=== PATIENT | female | born 1970 | race Caucasian/White ===

== ENCOUNTER → 2017-01-02 | Outpatient (CLI) | payer OTHER ==
[~2017-01-02] MED LIST: ATOR-54 PO; CALC500C3 PO; CITA40TA4 PO; DLN/100 PO; FOLI1TAB7 PO; GABA-113 PO; LEVO100T PO; NAPR1TAB9 PO
== END | disposition home or self-care (01) ==
LOC: C.LABBFT 10:42
PROVIDERS: ATTEND Internal Medicine
DX: E55.9 Vitamin D deficiency, unspecified (principal)

== ENCOUNTER → 2017-01-31 | Outpatient (CLI) | payer OTHER ==
--- NOTE | 2017-02-04 13:45 | MAMMOGRAPHY REPORT ---
BILATERAL DIGITAL SCREENING MAMMOGRAM WITH CAD: 01/31/2017 CLINICAL HISTORY: Routine screening. Baseline exam. TECHNIQUE: Current study was also evaluated with a Computer Aided Detection (CAD) system. Bilatera l CC and MLO views were obtained. The images are somewhat suboptimal due to difficulties with the p atient cooperating for positioning. COMPARISON: No prior exams were available for comparison. BREAST COMPOSITION: There are scattered areas of fibroglandular density in both breasts. FINDINGS: There is a possible oval 8 mm mass and associated calcifications in the left lateral sugar st at approximately 3 to 4:00, for which spot compression tomosynthesis views, spot magnification vi ews, and possible breast ultrasound are recommended for further evaluation. The remainder of both breasts are negative, without suspicious masses, calcifications, or areas of a rchitectural distortion noted. IMPRESSION: ACR BI-RADS CATEGORY 0: INCOMPLETE EVALUATION: NEED ADDITIONAL IMAGING EVALUATION Possible left breast mass with associated calcifications, for which additional imaging evaluation is recommended. The patient will be called to schedule an appointment. Approximately 10% of breast cancers are not detected with mammography. A negative mammographic repor t should not delay biopsy if a clinically suggestive mass is present. Lizeth Odell M.D. ah/:01/31/2017 16:32:53 It Lead: Jacqueline GARCIA(Izabela)(M), [facility] letter sent: Addl Imaging 0 BI-RADS Code: ACR BI-RADS Category 0: Incomplete Evaluation: Need Additional Imaging Evaluation
== END | disposition home or self-care (01) ==
LOC: C.MAMM 12:32
PROVIDERS: ATTEND Obstetrics & Gynecology
DX: Z12.31 Encounter for screening mammogram for malignant neoplasm of breast (principal); N63 Unspecified lump in breast; R92.1 Mammographic calcification found on diagnostic imaging of breast

== ENCOUNTER → 2017-02-21 | Outpatient (CLI) | payer OTHER ==
--- NOTE | 2017-02-21 12:48 | MAMMOGRAPHY REPORT ---
UNILATERAL LEFT DIGITAL DIAGNOSTIC MAMMOGRAM TOMOSYNTHESIS AND TARGETED LEFT ULTRASOUND: 02/21/2017 CLINICAL HISTORY: Callback from screening mammogram for left breast mass and associated calcificatio ns. TECHNIQUE: Breast tomosynthesis in addition to standard 2D mammography was performed. Spot christo hammad left CC and MLO 2-D and tomosynthesis images and spot magnification left CC and ML views were o btained. COMPARISON: Comparison is made to exam dated: 01/31/2017 mammogram - [facility]. BREAST COMPOSITION: There are scattered areas of fibroglandular density in the left breast. FINDINGS: The images are somewhat suboptimal due to difficulties with the patient cooperating for p ositioning. Spot compression views demonstrate an oval lobulated circumscribed 8 mm mass seen withi n the left breast at approximately 3 to 4:00. 2 calcifications are seen in association with the mas s, which are punctate on the cc view, with one of the calcifications layering on the MLO view sugges tive of calcifications layering within a cyst. Targeted ultrasound was performed of the area of the left breast mass. In the left breast at 3 to 4 :00 periareolar region, there is a subtle hypoechoic mass which measures 5 x 2 x 2 mm. A punctate e chogenic focus is seen within the mass, consistent with one of the calcifications seen mammographica lly. The mass is probably benign and likely represents a cyst although this does not meet all of th e criteria for a cyst on ultrasound. The options of biopsy versus short interval follow-up were dis cussed with the patient and her helper, and at this time we will opt for six-month follow-up. IMPRESSION: ACR-BI-RADS CATEGORY 3: PROBABLY BENIGN, TARGETED ULTRASOUND ACR-BI-RADS CATEGORY 3: SD OBABLY BENIGN Hypoechoic 5 mm mass with associated internal layering calcifications in the left 4:00 breast. The mass is probably benign and likely represents a cyst. Recommend follow-up diagnostic tomosynthesis mammograms and possible ultrasound of the left breast in 6 months to reevaluate. The patient and her helper have been verbally notified of the results. Approximately 10% of breast cancers are not detected with mammography. A negative mammographic repor t should not delay biopsy if a clinically suggestive mass is present. Lizeth Odell M.D. ah/:02/21/2017 09:06:52 Senior Administrative Assistant: Prachi Fitzpatrick RT(R)(M), [facility] letter sent: Follow Up Recommended 3 BI-RADS Code: ACR-BI-RADS Category 3: Probably Benign Ultrasound BI-RADS: ACR-BI-RADS Category 3: P robably Benign
== END | disposition home or self-care (01) ==
LOC: C.MAMM 08:33
PROVIDERS: ATTEND Obstetrics & Gynecology
DX: N63 Unspecified lump in breast (principal); R92.1 Mammographic calcification found on diagnostic imaging of breast

== ENCOUNTER → 2017-08-22 | Outpatient (CLI) | payer OTHER ==
--- NOTE | 2017-08-22 12:36 | MAMMOGRAPHY REPORT ---
UNILATERAL LEFT DIGITAL DIAGNOSTIC MAMMOGRAM TOMOSYNTHESIS WITH CAD AND TARGETED LEFT ULTRASOUND: 08/03 CLINICAL HISTORY: 6 Month Follow-up Left. TECHNIQUE: Breast tomosynthesis in addition to standard 2D mammography was performed. Current study was also evaluated with a Computer Aided Detection (CAD) system. Left CC and MLO 2-D and tomosynthes is images and spot magnification left CC and ML views were obtained. COMPARISON: Comparison is made to exams dated: 02/21/2017 mammogram, 02/21/2017 ultrasound, and 02/01/20 17 mammogram - [facility]. BREAST COMPOSITION: There are scattered areas of fibroglandular density in the left breast. FINDINGS: The previously seen circumscribed mass within the left breast at approximately 3 to 4:00 a ppears stable to less prominent mammographically compared to the prior exam. 2 calcifications are se en within the mass, which are punctate on the cc view and one of the calcifications layers on the lat eral view suggestive of calcifications layering within a cyst. The calcifications are also stable co mpared to the January 2017 exam. The remainder of the left breast is stable mammographically compared to prior exams, without suspicious masses, calcifications, or areas of architectural distortion noted . Targeted ultrasound was performed of the area of the previously seen mass. In the left breast at 4:0 0 periareolar region, there is an oval anechoic circumscribed mass which measures 4 x 2 x 3 mm. This is not significantly changed compared to the January exam where the mass measured 5 x 2 x 2 mm. This corresponds with the mammographic mass and is consistent with a benign cyst with internal calcificati ons. IMPRESSION: ACR BI-RADS CATEGORY 2: BENIGN, TARGETED ULTRASOUND ACR BI-RADS CATEGORY 2: BENIGN Anechoic 4 mm mass in the left breast at 4:00 with associated internal layering calcifications is sta ble compared to the January 2017 exam and is consistent with a benign cyst. There is no mammographic o r targeted sonographic evidence of malignancy. Return to annual mammogram screening schedule is recom mended, due January 2018. The patient has been verbally notified of the results. Approximately 10% of breast cancers are not detected with mammography. A negative mammographic report should not delay biopsy if a clinically suggestive mass is present. Lizeth Odell M.D. ah/:08/22/2017 10:06:30 Hypnotherapist: Jacqueline GARCIA(R)(M), [facility] letter sent: Normal /2 BI-RADS Code: ACR BI-RADS Category 2: Benign Ultrasound BI-RADS: ACR BI-RADS Category 2: Benign
== END | disposition home or self-care (01) ==
LOC: C.MAMM 09:19
PROVIDERS: ATTEND Obstetrics & Gynecology
DX: R92.2 Inconclusive mammogram (principal); N63 Unspecified lump in breast

== ENCOUNTER → 2017-12-11 | Outpatient (CLI) | payer OTHER ==
[~2017-12-11] MED LIST changes: -FOLI1TAB7 PO; +FOLI1TAB8 PO
[2017-12-11 18:03] LABS: ALBUMIN 3.8 gm/dl (3.4-5.0); ALT/SGPT 53 U/L (12-78); AST/SGOT 34 U/L (15-37); BLOOD UREA NITROGEN 16 mg/dl (7-18); CALCIUM 8.6 mg/dl (8.5-10.1); CARBON DIOXIDE 22 mmol/L (21-32); CREATININE 0.69 mg/dl (0.60-1.20); GLUCOSE 81 mg/dl (70-99); POTASSIUM 3.9 mmol/L (3.5-5.1); SODIUM 139 mmol/L (136-145)
[2017-12-11 18:14] LABS: ALKALINE PHOSPHATASE 149 U/L (45-117); CHOLESTEROL 145 mg/dl (0-200); LDL CHOLESTEROL CALCULATED 54 mg/dl; TOTAL PROTEIN 7.4 gm/dl (6.4-8.2)
[2017-12-12 05:58] LABS: HEMOGLOBIN A1C 5.1 % (4.5-5.6)
== END | disposition home or self-care (01) ==
LOC: C.LABBFT 11:16
PROVIDERS: ATTEND Internal Medicine
DX: E03.9 Hypothyroidism, unspecified (principal); E78.00 Pure hypercholesterolemia, unspecified; R73.01 Impaired fasting glucose; E55.9 Vitamin D deficiency, unspecified

== ENCOUNTER → 2018-02-25 | Outpatient (CLI) | payer OTHER ==
--- NOTE | 2018-02-27 07:48 | MAMMOGRAPHY REPORT ---
BILATERAL DIGITAL SCREENING MAMMOGRAM TOMOSYNTHESIS WITH CAD: 02/25/2018 CLINICAL HISTORY: Routine screening. TECHNIQUE: Breast tomosynthesis in addition to standard 2D mammography was performed. Current study was also evaluated with a Computer Aided Detection (CAD) system. COMPARISON: Comparison is made to exams dated: 08/22/2017 mammogram, 08/22/2017 ultrasound, 02/21/2017 mammogram, 02/21/2017 ultrasound, and 01/31/2017 mammogram - [facility]. BREAST COMPOSITION: There are scattered areas of fibroglandular density in both breasts. FINDINGS: A circumscribed oval mass with associated calcification in the 4:00 left breast has decreas ed in size, confirming a fluctuating cyst. There are a few benign-appearing calcifications in the br easts. No suspicious mass, architectural distortion or cluster of microcalcifications is seen. IMPRESSION: ACR BI-RADS CATEGORY 1: NEGATIVE There is no mammographic evidence of malignancy. A 1 year screening mammogram is recommended. The pa tient will receive written notification of the results. Approximately 10% of breast cancers are not detected with mammography. A negative mammographic report should not delay biopsy if a clinically suggestive mass is present. Rafia Birch M.D. ay/:02/25/2018 15:25:50 Scissors Grinder: Karen GARCIA(Izabela)(Shani), [facility] letter sent: Normal 1/2 BI-RADS Code: ACR BI-RADS Category 1: Negative
== END | disposition home or self-care (01) ==
LOC: C.MAMM 09:32
PROVIDERS: ATTEND Internal Medicine
DX: Z12.31 Encounter for screening mammogram for malignant neoplasm of breast (principal)

== ENCOUNTER 2020-07-15 08:23 | Observation (INO) ==
--- NOTE | 2020-07-15 09:11 | Emergency Department Note ---
Impression & Plan Dyspnea, Fatigue, Edema, peripheral ED Provider Note INFORMANT: [Patient] ED PROVIDER(S): Edward Vicente MD CHIEF COMPLAINT: Shortness of breath PLAN: Disposition: Admitted Condition: [Good] MEDICAL DECISION MAKING: Patient presented due to shortness of breath. She had peripheral edema. Her CBC, chemistry panel, troponin, BNP, and d-dimer were unremarkable. Chest x-ray was unremarkable as was ECG. Given the symptoms of shortness of breath the patient had an ambulatory pulse ox performed and this revealed hypoxia with a saturation of 88%. She was symptomatic with this. Given these findings I dis cussed the need for further treatment in the hospital. The patient and her caregiver were in agreement. Consultation was made with the hospitalist service. The patient was evaluated in the ER and admitted. Triage Nursing notes reviewed and agree them. [Additional history obtained from] caregiver [Prior medical records reviewed] history of diastolic CHF Vital Signs: reviewed and remarkable for [no significant abnormalities] Differential diagnosis: CHF, reactive airway disease, pneumonia, pneumothorax, COPD, infections, cardiac ischemia, pulmonary embolism, musculoskeletal, gastrointestinal, as well as other pathologies. Diagnostics interpreted by me: ECG: Rate:63 Rhythm:Normal sinus [place]:Normal QRS:Normal ST segements:No elevation or depression Other:No PACs or PVCs Cardiac Monitoring: [none] Imaging studies: Chest x-ray. Findings: A chest x-ray was performed and revealed no pneumothorax, effusion, infiltrate, pulmonary edema, free air under the diaphragm, or wide mediastinum. Impression: No acute disease. Consultation(s): Dr. Camacho HPI: The patient is a 50 year old female who presents to the Emergency Room with complaints of dyspnea. This started a week or 2 ago and is worsening. The patient's caregiver helps with the history as patient does have MR and resides in [facility]. The patient also notes the following associated symptoms, fatigue. Caregiver notes that the patient has lower leg swelling which is chronic. Her weight has been relatively stable or slightly decreasing due to diet. The patient has had her Lasix increased for relieving factors. Current pain is rated as 0/10. Caregiver was concerned as the patient is short of sugar th with minimal exertion sleeps all the time. Pt denies LOC, headache, fevers, chills, diaphoresis, visual changes, neck pain, chest pain, nausea, vomiting, abdominal pain, back pain, melena, hematochezia, urinary symptoms, numbness, weakness, lymphadenopathy, rash, or other complaints. ROS: See above HPI for pertinent positives & negatives. A total of [10] systems reviewed and were otherwise negative. PAST MEDICAL HISTORY:[See Below] diastolic heart failure, seizure, MR PAST SURGICAL HISTORY:[See Below] FAMILY HISTORY:[See Below] SOCIAL HISTORY:[See Below] resides [facility] HOME MEDICATIONS:[See Below] ALLERGIES:[See Below] VITALS:[See Below] PHYSICAL EXAMINATION: GENERAL: Awake, tired-appearing, in no distress HENT: Normocephalic, atraumatic. Oropharynx unremarkable. EYES: Normal conjunctiva. Sclera non-icteric. NECK: Inspection normal. Non-tender. Supple. No nuchal rigidity. FROM. No masses. RESPIRATORY: Clear to auscultation. No wheezes. No rales. Normal respiratory effort. CARDIAC: Normal rate. Normal rhythm. No murmurs. No rubs. Extremities warm and well perfused. Pulses equal. No JVD. GI: Soft, non-distended. No tenderness to palpation. No rebound or guarding. No masses. RECTAL: Deferred. MUSCULOSKELETAL: Atraumatic. Chest examination reveals no tenderness. The back is symmetrical on inspection without obvious abnormality. There is no CVA tenderness to palpation. No joint edema. LOWER EXTREMITIES: Calves are equal size bilaterally and non-tender. 2+ edema. No discoloration. NEURO: Normal sensorium. No sensory or motor deficits noted. SKIN: No rash or jaundice noted. ED COURSE: [Critical Care:] [None] Edward Vicente MD Past Med/Surg History Medical History Depression Hyperlipidemia Hypothyroid Impaired fasting glucose Intermittent explosive disorder Mental retardation (03/23/13) Morbid obesity Seizure disorder Surgical History History of hysterectomy History of total abdominal hysterectomy with removal of both ovaries S/P total abdominal hysterectomy Family History Other Diabetes Heart disease Hypertension Denies family history of Ovarian cancer Breast cancer Colorectal cancer Social History (Updated 07/15/20 @ 12:59 by Levy Hernandez Smoking Status: Never smoker Hx Alcohol Use: No Preferred Language: Brazilian Communication Ability: Impaired Visual Impairment: Limited Hearing Ability: Normal Mobile Paint Specialist Required: No Beliefs That Will Affect Care: None marital status: Single Current Living Situation Comment: [facility] [place] current occupational status: disabled Feels Safe at Home: Yes Allergies Allergies Allergy/AdvReac Type Severity Reaction Status Date / Time No Known Allergies Allergy Verified 07/15/20 09:28 Home Meds Home Medications Medication Instructions Recorded Confirmed atorvastatin 20 mg tablet 20 mg PO HS #90 tab 09/08/19 07/15/20 cholecalciferol (vitamin D3) 125 5,000 units PO QAM #30 tab 09/08/19 07/15/20 mcg (5,000 unit) tablet estradiol 1 mg tablet 1 mg PO QAM #30 tab 09/08/19 07/15/20 benztropine 1 mg PO QAM 11/09/19 07/15/20 diphenhydramine HCl [Benadryl 50 mg PO HS 11/09/19 07/15/20 Allergy] folic acid 1 mg PO QAM 11/09/19 07/15/20 melatonin 5 mg PO HS 11/09/19 07/15/20 citalopram 20 mg PO QAM 03/09/20 07/15/20 divalproex 500 mg PO QAM 03/09/20 07/15/20 levothyroxine 125 mcg PO QAM 03/09/20 07/15/20 topiramate 200 mg PO QAM 03/09/20 07/15/20 desmopressin 0.2 mg tablet 0.2 mg PO HS tab 06/27/20 07/15/20 lorazepam 1 mg tablet 0.5 mg PO TID tab 06/27/20 07/15/20 ziprasidone HCl 20 mg capsule 20 mg PO BID cap 06/27/20 07/15/20 magnesium hydroxide 400 mg/5 mL See Rx Instructions PO DAILY PRN 07/05/20 07/15/20 oral suspension perphenazine 8 mg tablet 8 mg PO TID tab 07/05/20 07/15/20 divalproex 1,000 mg PO HS 07/15/20 07/15/20 furosemide [Lasix] 60 mg PO QAM 07/15/20 07/15/20 Previous Rx's Medication Instructions Recorded mupirocin 2 % topical ointment 1 appln TOP TID #30 gm 07/05/20 Results & Data (ED) Vital Signs Vital Signs - 24 hr 07/15/20 08:38 07/15/20 08:44 07/15/20 10:34 Temperature 36.8 C Temperature Source Oral Pulse Rate 66 Pulse Rate [Apical] 62 Respiratory Rate 18 22 Respiratory Rate [Exercises] Respiratory Effort / Characteristics Non-Labored Respiratory Depth Normal Blood Pressure 112/74 Blood Pressure [Right Arm] 107/55 L Blood Pressure Mean 86 Blood Pressure Mean [Right Arm] 72 Pulse Oximetry 97 97 95 Pulse Oximetry [Exercises] Oxygen Delivery Method Room Air Room Air Room Air Sepsis Recent Fever Within 48 Hours No Sepsis New/Unexplained Change in Mental Status No Sepsis Action Taken by Nursing No Action Required 07/15/20 12:00 07/15/20 12:01 Temperature Temperature Source Pulse Rate Pulse Rate [Apical] 78 Respiratory Rate 18 Respiratory Rate [Exercises] 22 Respiratory Effort / Characteristics Respiratory Depth Blood Pressure Blood Pressure [Right Arm] 124/79 Blood Pressure Mean Blood Pressure Mean [Right Arm] 94 Pulse Oximetry 99 Pulse Oximetry [Exercises] 88 L Oxygen Delivery Method Room Air Room Air Sepsis Recent Fever Within 48 Hours Sepsis New/Unexplained Change in Mental Status Sepsis Action Taken by Nursing Laboratory Data Result diagrams: 07/15/20 09:10 07/15/20 09:10 Lab Results 07/15/20 07/15/20 07/15/20 Range/Units 09:10 09:10 09:10 WBC 3.97 L (4.8-10.8) K/uL RBC 4.84 (4.2-5.4) M/uL Hgb 14.5 (12.0-16.0) g/dL Hct 42.9 (37-47) % MCV 88.6 (80-100) fL MCH 30.0 (25-34) pg MCHC 33.8 (32-36) g/dL RDW Std Deviation 41.4 (36.4-46.3) fL RDW Coeff of Sommer 12.8 (11.5-14.5) % Plt Count 130 (130-400) K/uL MPV 11.5 H (7.4-10.4) fL Immature Gran % (Auto) 0.3 % Neut % (Auto) 50.5 % Lymph % (Auto) 32.0 % Lares % (Auto) 15.6 % Eos % (Auto) 1.3 % Baso % (Auto) 0.3 % Neut # (Auto) 2.01 (1.4-6.5) K/uL Lymph # (Auto) 1.27 (1.2-3.4) K/uL Lares # (Auto) 0.62 H (0.11-0.59) K/uL Eos # (Auto) 0.05 (0-0.5) K/uL Baso # (Auto) 0.01 (0-0.2) K/uL Immature Gran # (Auto) 0.01 (0.00-0.02) K/uL D-Dimer < 190 (0-500) ug/L FEU Sodium 136 (136-145) mmol/L Potassium 3.8 (3.5-5.1) mmol/L Chloride 104 (98-107) mmol/L Carbon Dioxide 26 (21-32) mmol/L Anion Gap 6.0 (3-11) BUN 14 (7-18) mg/dl Creatinine 0.92 (0.6-1.2) mg/dl Est Cr Clr Drug Dosing 114.4 ml/min Est GFR ( Amer) 83.6 Est GFR (Non-Af Amer) 72.1 BUN/Creatinine Ratio 15.3 (10-20) Glucose 92 (70-99) mg/dl Calcium 9.2 (8.5-10.1) mg/dl Magnesium 2.2 (1.8-2.4) mg/dl Total Bilirubin 0.4 (0.2-1) mg/dl AST 24 (15-37) U/L ALT 23 (12-78) U/L Alkaline Phosphatase 56 (45-117) U/L Troponin I < 0.015 (0-0.045) ng/ml NT-Pro-B Natriuret Pep 192 (0-900) pg/ml Total Protein 7.1 (6.4-8.2) gm/dl Albumin 3.3 L (3.4-5.0) gm/dl Globulin 3.8 (2.5-4.0) gm/dl Albumin/Globulin Ratio 0.9 (0.9-2) TSH 2.300 (0.300-4.500) uIu/ml HCG, Qual (Negative) Urine Color Urine Appearance Urine pH Ur Specific [place] Urine Protein Urine Glucose (UA) Urine Ketones Urine Blood Urine Nitrite Urine Bilirubin Urine Urobilinogen Ur Leukocyte Esterase Urine WBC (Auto) Urine RBC (Auto) U Hyaline Cast (Auto) U Epithel Cells (Auto) Urine Bacteria (Auto) Ur Renal Epithelial Cell Urine Crystals Calcium Oxalate Crystal Uric Acid Crystals Triple Phos Crystals Other Crystals Amorphous Sediment Granular Casts Waxy Casts RBC Casts WBC Casts Other Casts Urine Mucus Urine Other Urine Trichomonas Urine Yeast Urine Sperm Ur Oval Fat Bodies 07/15/20 07/15/20 Range/Units 09:10 11:40 WBC (4.8-10.8) K/uL RBC (4.2-5.4) M/uL Hgb (12.0-16.0) g/dL Hct (37-47) % MCV (80-100) fL MCH (25-34) pg MCHC (32-36) g/dL RDW Std Deviation (36.4-46.3) fL RDW Coeff of Sommer (11.5-14.5) % Plt Count (130-400) K/uL MPV (7.4-10.4) fL Immature Gran % (Auto) % Neut % (Auto) % Lymph % (Auto) % Lares % (Auto) % Eos % (Auto) % Baso % (Auto) % Neut # (Auto) (1.4-6.5) K/uL Lymph # (Auto) (1.2-3.4) K/uL Lares # (Auto) (0.11-0.59) K/uL Eos # (Auto) (0-0.5) K/uL Baso # (Auto) (0-0.2) K/uL Immature Gran # (Auto) (0.00-0.02) K/uL D-Dimer (0-500) ug/L FEU Sodium (136-145) mmol/L Potassium (3.5-5.1) mmol/L Chloride (98-107) mmol/L Carbon Dioxide (21-32) mmol/L Anion Gap (3-11) BUN (7-18) mg/dl Creatinine (0.6-1.2) mg/dl Est Cr Clr Drug Dosing ml/min Est GFR ( Amer) Est GFR (Non-Af Amer) BUN/Creatinine Ratio (10-20) Glucose (70-99) mg/dl Calcium (8.5-10.1) mg/dl Magnesium (1.8-2.4) mg/dl Total Bilirubin (0.2-1) mg/dl AST (15-37) U/L ALT (12-78) U/L Alkaline Phosphatase (45-117) U/L Troponin I (0-0.045) ng/ml NT-Pro-B Natriuret Pep (0-900) pg/ml Total Protein (6.4-8.2) gm/dl Albumin (3.4-5.0) gm/dl Globulin (2.5-4.0) gm/dl Albumin/Globulin Ratio (0.9-2) TSH (0.300-4.500) uIu/ml HCG, Qual Negative (Negative) Urine Color Cancelled Urine Appearance Cancelled Urine pH Cancelled Ur Specific [place] Cancelled Urine Protein Cancelled Urine Glucose (UA) Cancelled Urine Ketones Cancelled Urine Blood Cancelled Urine Nitrite Cancelled Urine Bilirubin Cancelled Urine Urobilinogen Cancelled Ur Leukocyte Esterase Cancelled Urine WBC (Auto) Cancelled Urine RBC (Auto) Cancelled U Hyaline Cast (Auto) Cancelled U Epithel Cells (Auto) Cancelled Urine Bacteria (Auto) Cancelled Ur Renal Epithelial Cell Cancelled Urine Crystals Cancelled Calcium Oxalate Crystal Cancelled Uric Acid Crystals Cancelled Triple Phos Crystals Cancelled Other Crystals Cancelled Amorphous Sediment Cancelled Granular Casts Cancelled Waxy Casts Cancelled RBC Casts Cancelled WBC Casts Cancelled Other Casts Cancelled Urine Mucus Cancelled Urine Other Cancelled Urine Trichomonas Cancelled Urine Yeast Cancelled Urine Sperm Cancelled Ur Oval Fat Bodies Cancelled Administered Medications Discontinued Medications Ioversol (Optiray 320 125ml) 110 ml IV ONCE ONE Stop: 07/15/20 14:25 Last Admin: 07/15/20 14:25 Dose: 110 ml Documented by: [id number] Discharge Plan Visit Data Chief Complaint: Illness Stated Complaint: fluid retention ED Provider: Edward Vicente Discharge Problem: Dyspnea, Fatigue, Edema, peripheral Patient Disposition: Admitted As Inpatient Discharge Instructions Interventions: ED Discharge Assessment Last Done: 07/15/20 14:03 Discharge Problem: Dyspnea Qualifiers: Dyspnea type: dyspnea on exertion Qualified Code(s): R06.00 - Dyspnea, unspecified Fatigue Qualifiers: Fatigue type: unspecified Qualified Code(s): R53.83 - Other fatigue
[2020-07-15 09:22] LABS: Basophils # (auto) 0.01 K/uL (0-0.2); Basophils % (auto) 0.3 %; Eosinophils # (auto) 0.05 K/uL (0-0.5); Eosinophils % (auto) 1.3 %; Hematocrit (blood only) 42.9 % (37-47); Hemoglobin 14.5 g/dL (12.0-16.0); Immature Granulocytes # (auto) 0.01 K/uL (0.00-0.02); Immature Granulocytes % (auto) 0.3 %; Lymphocytes # (auto) 1.27 K/uL (1.2-3.4); Mean Corpuscular Hgb Conc 33.8 g/dL (32-36); Mean Corpuscular Volume 88.6 fL (80-100); Mean Platelet Volume 11.5 fL (7.4-10.4); Monocytes # (auto) 0.62 K/uL (0.11-0.59); Monocytes % (auto) 15.6 %; Neutrophils # (auto) 2.01 K/uL (1.4-6.5); Neutrophils % (auto) 50.5 %; Platelet Count 130 K/uL (130-400); RDW Coefficient of Variation 12.8 % (11.5-14.5); RDW Standard Deviation 41.4 fL (36.4-46.3); Red Blood Count 4.84 M/uL (4.2-5.4); White Blood Count 3.97 K/uL (4.8-10.8)
[2020-07-15 09:39] LABS: Alanine Aminotransferase 23 U/L (12-78); Albumin Level 3.3 gm/dl (3.4-5.0); Aspartate Aminotransferase 24 U/L (15-37); BUN Creatinine Ratio 15.3 (10-20); Blood Urea Nitrogen 14 mg/dl (7-18); Calcium 9.2 mg/dl (8.5-10.1); Carbon Dioxide 26 mmol/L (21-32); Chloride 104 mmol/L (98-107); Creatinine Clr Calc Pharmacy 114.4 ml/min; Est GFR (African American) 83.6; Est GFR (Non-African American) 72.1; Glucose 92 mg/dl (70-99); Magnesium 2.2 mg/dl (1.8-2.4); Potassium 3.8 mmol/L (3.5-5.1); Sodium 136 mmol/L (136-145)
[2020-07-15 09:41] LABS: D Dimer < 190 ug/L FEU (0-500)
[2020-07-15 09:43] LABS: Pregnancy Test, Serum Negative (Negative)
[2020-07-15 09:50] LABS: Albumin Globulin Ratio 0.9 (0.9-2); Alkaline Phosphatase 56 U/L (45-117); Bilirubin,Total 0.4 mg/dl (0.2-1); Globulin 3.8 gm/dl (2.5-4.0); NT Pro B Type Natriuretic Pept 192 pg/ml (0-900); Total Protein 7.1 gm/dl (6.4-8.2); Troponin I < 0.015 ng/ml (0-0.045)
--- NOTE | 2020-07-15 10:00 | XRay Report ---
INSPIRATORY/EXPIRATORY CHEST X-RAYS CLINICAL HISTORY: Generalized weakness. FINDINGS: AP upright chest x-rays are performed in inspiration and expiration. Comparison is made to study dated 07/05/2020 and correlated with chest CT dated 10/23/2019 The examination is degraded by lar ge body habitus and patient rotation. . The heart is top normal for projection. The pulmonary vascula ture is noncongested. There are low lung volumes with bibasilar atelectasis. No airspace consolidatio n or large pleural effusion is identified. No pneumothorax is seen. The skeletal structures are osteo penic. The bony thorax is grossly intact. IMPRESSION: No active disease in the chest. ACT 112: Negative or not required by law. Electronically signed by: Williams Paul M.D. 07/15/2020 9:59 AM
--- NOTE | 2020-07-15 12:48 | History & Physical Report ---
Date of Service July 15, 2020 Assessment & Plan (1) Dyspnea: She has no pulmonary edema radiographically or by way of exam. No obvious pneumonia. Differential - pulmonary HTN, obesity hypoventilation syndrome, restrictive lung disease from morbid obesity, chronic PEs, angina/ischemia from CAD, etc. Will obtain CTA chest - r/o PE, r/o other pathology. Check echo. If CTA Chest and echo are unrevealing consider stress test as outpatient given EKG changes seen today. Might need 2-day stress test. (2) Fatigue: Possibilities include sleep disordered breathing/NENA, medication side effect, metabolic disturbance, ongoing depression, etc. Check overnight oximetry study tonight. If positive (which I suspect) will d/c home on nocturnal oxygen. Then will need formal sleep study as outpatient. TSH wnl. Recent ammonia level wnl. Check B12 level am. On numerous psychotropic meds which can cause sedation. Recently spent time at some form of mental health facility for med adjustment. Will not change her meds at this time. Check depakote level to r/o toxicity. (3) Edema, peripheral: Edema is most c/w lymphedema. Clinical picture is not c/w CHF. Renal function is normal. TSH is normal. LFTs are normal. Depakote can cause edema. I cannot rule out right heart disease thus check echo today. Lasix has not helped her even at escalating doses. Consider referral to lymphedema specialist for lymphedema treatment. Dimer is normal, but will obtain dopplers of legs just to be complete. (4) Daytime somnolence: Suspect sleep disordered breathing/NENA as cause. Cannot rule out med side effects. Overnight oximetry study tonight. Needs formal sleep study as outpatient. (5) Hypoxia: If work-up is negative she may have obesity-hypoventilation syndrome. Check nocturnal oximetry study tonight. Would obtain 2-step oxygen test on day of discharge as well. (6) Morbid obesity: BMI 54.6 (7) Seizure disorder: by history. continue current meds. check depakote level to r/o toxicity. (8) Hypothyroid: TSH 2.3. Cont synthroid. (9) Hyperlipidemia: LDL 55 earlier this summer. Cont statin. (10) Intermittent explosive disorder: Cont psychotropic meds from half-way as previous. (11) Depression: defer management to outpatient physicians. (12) Intellectual disability: moderate-severe. (13) Leukopenia: appears chronic. also with associated mild thrombocytopenia. check B12 level in am. takes daily folate supplement - defer on folic acid level. this may be her baseline for her given the chronicity. (14) Thrombocytopenia: mild. see above in "leukopenia." (15) DVT prophylaxis: due to BMI of nearly 55 -- heparin 7500 units TID PT eval to ensure safe for return to [facility] healthcare power of traffic operations manager -- group practice pediatrician who was present today during the admission was uncertain if it was her mother or another [facility] employee History of Present Illness Chief Complaint: edema, shortness of breath Primary Care Provider: Thu Grady MD 50yo female with history of severe intellectual disability, morbid obesity, hypothyroidism, and seizure disorder presents with persistent LE edema, dyspnea on exertion, fatigue/sleepiness, and lack of response to lasix over the last 2-3 weeks. She may have had 3-4 pounds of weight loss with the lasix. Her PCP, Dr Grady, has been adjusting the lasix. The [facility] has been noting tremors/shakes and dizziness recently as well. Skylar Sauceda was accompanied by a staff member from the [facility] who provided all of the history. The group practice pediatrician stated that Skylar Sauceda spent several months in a behavioral health unit and upon return to her [facility] in [place] she was noted to have the above symptoms. She returned to the [facility] about 1 month ago. Allergies Allergy/AdvReac Type Severity Reaction Status Date / Time No Known Allergies Allergy Verified 07/15/20 09:28 Home Medications Home Medications Medication Instructions Recorded Confirmed Type atorvastatin 20 mg tablet 20 mg PO HS #90 tab 09/08/19 07/15/20 History cholecalciferol (vitamin D3) 125 5,000 units PO QAM #30 tab 09/08/19 07/15/20 History mcg (5,000 unit) tablet estradiol 1 mg tablet 1 mg PO QAM #30 tab 09/08/19 07/15/20 History benztropine 1 mg PO QAM 11/09/19 07/15/20 History diphenhydramine HCl [Benadryl 50 mg PO HS 11/09/19 07/15/20 History Allergy] folic acid 1 mg PO QAM 11/09/19 07/15/20 History melatonin 5 mg PO HS 11/09/19 07/15/20 History citalopram 20 mg PO QAM 03/09/20 07/15/20 History divalproex 500 mg PO QAM 03/09/20 07/15/20 History levothyroxine 125 mcg PO QAM 03/09/20 07/15/20 History topiramate 200 mg PO QAM 03/09/20 07/15/20 History desmopressin 0.2 mg tablet 0.2 mg PO HS tab 06/27/20 07/15/20 History lorazepam 1 mg tablet 0.5 mg PO TID tab 06/27/20 07/15/20 History ziprasidone HCl 20 mg capsule 20 mg PO BID cap 06/27/20 07/15/20 History magnesium hydroxide 400 mg/5 mL See Rx Instructions PO DAILY PRN 07/05/20 07/15/20 History oral suspension mupirocin 2 % topical ointment 1 appln TOP TID #30 gm 07/05/20 07/15/20 Rx perphenazine 8 mg tablet 8 mg PO TID tab 07/05/20 07/15/20 History divalproex 1,000 mg PO HS 07/15/20 07/15/20 History furosemide [Lasix] 60 mg PO QAM 07/15/20 07/15/20 History Past Med/Surg History Medical History (Updated 07/15/20 @ 22:23 by Levy Camacho) Depression Hyperlipidemia Hypothyroid Impaired fasting glucose Intellectual disability Intermittent explosive disorder Morbid obesity Seizure disorder Surgical History History of hysterectomy History of total abdominal hysterectomy with removal of both ovaries S/P total abdominal hysterectomy Family History Other Diabetes Heart disease Hypertension Denies family history of Ovarian cancer Breast cancer Colorectal cancer Social History (Updated 07/15/20 @ 22:17 by Levy Camacho) Smoking Status: Never smoker Do You Dip or Chew Tobacco: No; Hx Alcohol Use: No Hx Substance Use: No Preferred Language: Guinean Communication Ability: Effective Visual Impairment: Limited Hearing Ability: Normal Game Engineer Required: No Beliefs That Will Affect Care: None marital status: Single Current Living Situation: Other Current Living Situation Comment: Skills current occupational status: disabled Other Information That Helps Us Care for You: No other: grew up in [place]; next of kin -- mother Feels Safe at Home: Yes Safety Concerns: Feels Safe At This Time Review of Systems Constitutional: + fatigue, + anorexia and + weight gain; no fever Eyes: no eye pain Ear, Nose, Mouth, Throat: no ear pain, no sore throat and no dysphagia Respiratory: + dyspnea on exertion; no cough Cardiovascular: + edema; no chest pain Gastrointestinal: no abdominal pain, no vomiting, no diarrhea/loose stools and no blood in stools Genitourinary: no dysuria recently on course of levaquin for possible UTI Musculoskeletal: no back pain and no myalgia Integumentary: ?recent cellulitis of legs? Neurologic: no seizure-like activity and no headache(s) Psychiatric: + behavioral changes and + depression Endocrine: no diabetes Hematologic / Lymphatic: no easy bleeding and no easy bruising Physical Exam Constitutional: + morbidly obese; no acute distress and no altered mental status tearful, stating she wants her mother and wants to go home Eyes: + anicteric sclerae and PERRL ENMT: external ear and nose normal, oropharynx normal Ears: no TM abnormality Mouth: + macroglossia Neck: trachea midline, no thyromegaly Respiratory: normal respiratory effort, lungs clear to auscultation Cardiovascular: Rate/Rhythm: regular rate and regular rhythm Heart Sounds: normal S1 and normal S2; no murmur Vessels: posterior tibial pulses present and dorsalis pedis pulses present; no JVD Extremities: + edema (lymphedema both legs - severe; nonpitting ) Gastrointestinal (Abdomen): normal bowel sounds, soft, nontender, no hepatosplenomegaly Musculoskeletal: Extremities: no clubbing Skin: no rashes, warm and dry Neurologic: deep tendon reflexes 2+ bilaterally and moves all extremities Psychiatric: Orientation: alert and oriented to person Lymphatic: no cervical lymphadenopathy Results & Data Results & Data ([facility]) Vital Signs (Past 12 Hours) Vital Signs Temp Pulse Pulse Resp Resp BP BP 07/15/20 12:01 22 07/15/20 12:00 78 18 124/79 07/15/20 10:34 62 22 107/55 L 07/15/20 08:44 07/15/20 08:38 36.8 C 66 18 112/74 Pulse Ox Pulse Ox 07/15/20 12:01 88 L 07/15/20 12:00 99 07/15/20 10:34 95 07/15/20 08:44 97 07/15/20 08:38 97 Laboratory Results Laboratory Results - last 24 hr 07/15/20 07/15/20 07/15/20 09:10 09:10 09:10 WBC 3.97 L RBC 4.84 Hgb 14.5 Hct 42.9 MCV 88.6 MCH 30.0 MCHC 33.8 RDW Std Deviation 41.4 RDW Coeff of [place] 12.8 Plt Count 130 MPV 11.5 H Immature Gran % (Auto) 0.3 Neut % (Auto) 50.5 Lymph % (Auto) 32.0 [place] % (Auto) 15.6 Eos % (Auto) 1.3 Baso % (Auto) 0.3 Neut # (Auto) 2.01 Lymph # (Auto) 1.27 [place] # (Auto) 0.62 H Eos # (Auto) 0.05 Baso # (Auto) 0.01 Immature Gran # (Auto) 0.01 D-Dimer < 190 Sodium 136 Potassium 3.8 Chloride 104 Carbon Dioxide 26 Anion Gap 6.0 BUN 14 Creatinine 0.92 Est Cr Clr Drug Dosing 114.4 Est GFR ( Amer) 83.6 Est GFR (Non-Af Amer) 72.1 BUN/Creatinine Ratio 15.3 Glucose 92 Calcium 9.2 Magnesium 2.2 Total Bilirubin 0.4 AST 24 ALT 23 Alkaline Phosphatase 56 Troponin I < 0.015 NT-Pro-B Natriuret Pep 192 Total Protein 7.1 Albumin 3.3 L Globulin 3.8 Albumin/Globulin Ratio 0.9 TSH 2.300 HCG, Qual Urine Color Urine Appearance Urine pH Ur Specific [place] Urine Protein Urine Glucose (UA) Urine Ketones Urine Blood Urine Nitrite Urine Bilirubin Urine Urobilinogen Ur Leukocyte Esterase Urine WBC (Auto) Urine RBC (Auto) U Hyaline Cast (Auto) U Epithel Cells (Auto) Urine Bacteria (Auto) Ur Renal Epithelial Cell Urine Crystals Calcium Oxalate Crystal Uric Acid Crystals Triple Phos Crystals Other Crystals Amorphous Sediment Granular Casts Waxy Casts RBC Casts WBC Casts Other Casts Urine Mucus Urine Other Urine Trichomonas Urine Yeast Urine Sperm Ur Oval Fat Bodies Valproic Acid 07/15/20 07/15/20 07/15/20 09:10 11:40 13:51 WBC RBC Hgb Hct MCV MCH MCHC RDW Std Deviation RDW Coeff of [place] Plt Count MPV Immature Gran % (Auto) Neut % (Auto) Lymph % (Auto) [place] % (Auto) Eos % (Auto) Baso % (Auto) Neut # (Auto) Lymph # (Auto) [place] # (Auto) Eos # (Auto) Baso # (Auto) Immature Gran # (Auto) D-Dimer Sodium Potassium Chloride Carbon Dioxide Anion Gap BUN Creatinine Est Cr Clr Drug Dosing Est GFR ( Amer) Est GFR (Non-Af Amer) BUN/Creatinine Ratio Glucose Calcium Magnesium Total Bilirubin AST ALT Alkaline Phosphatase Troponin I NT-Pro-B Natriuret Pep Total Protein Albumin Globulin Albumin/Globulin Ratio TSH HCG, Qual Negative Urine Color Cancelled Urine Appearance Cancelled Urine pH Cancelled Ur Specific [place] Cancelled Urine Protein Cancelled Urine Glucose (UA) Cancelled Urine Ketones Cancelled Urine Blood Cancelled Urine Nitrite Cancelled Urine Bilirubin Cancelled Urine Urobilinogen Cancelled Ur Leukocyte Esterase Cancelled Urine WBC (Auto) Cancelled Urine RBC (Auto) Cancelled U Hyaline Cast (Auto) Cancelled U Epithel Cells (Auto) Cancelled Urine Bacteria (Auto) Cancelled Ur Renal Epithelial Cell Cancelled Urine Crystals Cancelled Calcium Oxalate Crystal Cancelled Uric Acid Crystals Cancelled Triple Phos Crystals Cancelled Other Crystals Cancelled Amorphous Sediment Cancelled Granular Casts Cancelled Waxy Casts Cancelled RBC Casts Cancelled WBC Casts Cancelled Other Casts Cancelled Urine Mucus Cancelled Urine Other Cancelled Urine Trichomonas Cancelled Urine Yeast Cancelled Urine Sperm Cancelled Ur Oval Fat Bodies Cancelled Valproic Acid 101 H Diagnostic Findings cxr: FINDINGS: AP upright chest x-rays are performed in inspiration and expiration. Comparison is made to study dated 07/05/2020 and correlated with chest CT dated 10/23/2019 The examination is degraded by large body habitus and patient rotation. . The heart is top normal for projection. The pulmonary vasculature is noncongested. There are low lung volumes with bibasilar atelectasis. No airspace consolidation or large pleural effusion is identified. No pneumothorax is seen. The skeletal structures are osteopenic. The bony thorax is grossly intact. IMPRESSION: No active disease in the chest. EKG - my reading - NSR, NS ST changes anterior leads (V2, V3, V4) -- new; NS ST changes III, AVF -- old Code Status & VTE Plan Code Status full - as confirmed with group practice pediatrician VTE Prophylaxis Plan VTE Prophylaxis will be ordered: Yes PG Care Time/CCT Total # of Minutes Spent Total Time Spent with Patient: Total time spent is greater than 50% in coordination of care (as documented) at patient's floor/unit and/or counseling patient: Coding Level of Care Code 63857 OBS Care - Level 3 Diagnoses Dyspnea R06.00 Dyspnea type: dyspnea on exertion Fatigue R53.83 Fatigue type: unspecified Edema, peripheral R60.9 Daytime somnolence R40.0 Hypoxia R09.02 Morbid obesity E66.01 Seizure disorder G40.909 Hypothyroid E03.9 Hypothyroidism type: unspecified Hyperlipidemia E78.5 Hyperlipidemia type: unspecified Intermittent explosive disorder F63.81 Depression F32.9 Depression Type: unspecified Intellectual disability F79 Leukopenia D72.818 Leukopenia type: other Thrombocytopenia D69.6 DVT prophylaxis Z29.9 (1) Fatigue Fatigue type: unspecified Qualified Code(s): R53.83 - Other fatigue (2) Depression Depression Type: unspecified Qualified Code(s): F32.9 - Major depressive disorder, single episode, unspecified (3) Dyspnea Dyspnea type: dyspnea on exertion Qualified Code(s): R06.00 - Dyspnea, unspecified (4) Hyperlipidemia Hyperlipidemia type: unspecified Qualified Code(s): E78.5 - Hyperlipidemia, unspecified (5) Hypothyroid Hypothyroidism type: unspecified Qualified Code(s): E03.9 - Hypothyroidism, unspecified (6) Leukopenia Leukopenia type: other Qualified Code(s): D72.818 - Other decreased white blood cell count
[2020-07-15] MEDS ORDERED: OPTIRAY 320 125ml IV ONE (14:24)
[2020-07-15] MEDS ORDERED: ACETAMINOPHEN 325 MG TAB PO PRN (14:35)
[2020-07-15] MEDS ORDERED: ONDANSETRON INJ 2 MG/ML 2 ML VIAL IV PRN (14:35)
--- NOTE | 2020-07-15 14:37 | CT Scan Report ---
CT angio chest PE protocol CT DOSE: 761.19 mGy.cm HISTORY: Dyspnea worsening dyspnea, eval PE; eval edema TECHNIQUE: Multiaxial CT images of the chest were performed following the intravenous administration of contrast to evaluate the pulmonary arteries. Maximal intensity projection images were also obtaine d. A dose lowering technique was utilized adhering to the principles of ALARA. COMPARISON STUDY: None. FINDINGS: There is a normal caliber thoracic aorta with no evidence for dissection. There is no evide nce for pulmonary embolus. No pleural effusions. No pneumothorax. The liver and spleen are unremarkab le. No mediastinal or hilar lymphadenopathy. The central airways are patent. The lungs are clear. IMPRESSION: No evidence for pulmonary embolus. The lungs are clear. ACT 112: Negative or not required by law. The above report was generated using voice recognition software. It may contain grammatical, syntax or spelling errors. Electronically signed by: Lobo Herrera M.D. 07/15/2020 2:36 PM
[2020-07-15] MEDS: HEPARIN SOD 5,000 UNIT/0.5 ML VIAL SQ SCH ×2 (16:52→22:00)
[2020-07-15] MEDS: PERPHENAZINE 2 MG TABLET PO SCH ×2 (16:52→21:59)
[2020-07-15] MEDS: LORazepam 0.5 MG TAB PO SCH ×2 (16:59→21:59)
--- NOTE | 2020-07-15 17:59 | XCELERA ---
[id number]
[2020-07-15] MEDS: ATORVASTATIN 20 MG TAB PO SCH (21:59)
[2020-07-15] MEDS: DESMOPRESSIN ACETATE 0.1 MG TAB PO SCH (21:59)
[2020-07-15] MEDS: DIVALPROEX EXTENDED RELEASE 500 MG TAB PO SCH (21:59)
[2020-07-16] MEDS: LEVOTHYROXINE SODIUM 125 MCG TABLET PO SCH (06:20)
[2020-07-16] MEDS: HEPARIN SOD 5,000 UNIT/0.5 ML VIAL SQ SCH ×3 (06:20→23:41)
--- NOTE | 2020-07-16 06:55 | Electrocardiogram Report ---
Test Reason : Blood Pressure : / mmHG Vent. Rate : 063 BPM Atrial Rate : 063 BPM P-R Int : 146 ms QRS Dur : 088 ms QT Int : 460 ms P-R-T Axes : 018 -11 000 degrees QTc Int : 470 ms Normal sinus rhythm Cannot rule out Anterior infarct , age undetermined Nonspecific T wave abnormality Abnormal ECG When compared with ECG of 14-JUL-2020 10:01, Nonspecific T wave abnormality now evident in Anterior leads Confirmed by Miguel A Grewal ([id number]) on 07/16/2020 6:54:54 AM Referred By: REFERRED SELF Confirmed By:Miguel A Grewal
[2020-07-16] MEDS: LORazepam 0.5 MG TAB PO SCH ×3 (07:57→20:13)
[2020-07-16] MEDS: TOPIRAMATE 100 MG TAB PO SCH (07:57)
[2020-07-16] MEDS: BENZTROPINE MESYLATE 1 MG TAB PO SCH (07:57)
[2020-07-16] MEDS: PERPHENAZINE 2 MG TABLET PO SCH ×3 (07:58→20:15)
[2020-07-16] MEDS: estradioL 1 MG TAB PO SCH (07:58)
[2020-07-16] MEDS: DIVALPROEX EXTENDED RELEASE 500 MG TAB PO SCH ×2 (07:58→20:14)
[2020-07-16] MEDS: CITALOPRAM 20 MG TAB PO SCH (07:58)
[2020-07-16] MEDS: FOLIC ACID 1 MG TAB PO SCH (07:58)
[2020-07-16] MEDS: CHOLECALCIFEROL 1,000 UNITS 25 MCG TAB PO SCH (07:59)
[2020-07-16 09:52] LABS: BUN Creatinine Ratio 13.7 (10-20); Calcium 9.4 mg/dl (8.5-10.1); Creatinine Clr Calc Pharmacy 112.1 ml/min; Est GFR (African American) 82.5; Est GFR (Non-African American) 71.2; Potassium 3.5 mmol/L (3.5-5.1)
--- NOTE | 2020-07-16 13:16 | Discharge Summary ---
Date of Service July 16, 2020 Admission HPI Per Admitting Provider 50yo female with history of severe intellectual disability, morbid obesity, hypothyroidism, and seizure disorder presents with persistent LE edema, dyspnea on exertion, fatigue/sleepiness, and lack of response to lasix over the last 2-3 weeks. She may have had 3-4 pounds of weight loss with the lasix. Her PCP, Dr Grady, has been adjusting the lasix. The [facility] has been noting tremors/shakes and dizziness recently as well. Skylar Sauceda was accompanied by a staff member from the [facility] who provided all of the history. The group practice pediatrician stated that Skylar Sauceda spent several months in a behavioral health unit and upon return to her [facility] in [place] she was noted to have the above symptoms. She returned to the [facility] about 1 month ago. Discharge Data Allergies Allergy/AdvReac Type Severity Reaction Status Date / Time No Known Allergies Allergy Verified 07/15/20 09:28 Consultations 07/15/20 12:40 ED Decision to Admit Stat Ordered Studies 07/15/20 13:31 CT angio chest PE protocol Stat Hospital Course (1) Dyspnea: She has no pulmonary edema radiographically or by way of exam. No obvious pneumonia. Differential - pulmonary HTN, obesity hypoventilation syndrome, restrictive lung disease from morbid obesity, chronic PEs, angina/ischemia from CAD, etc. Will obtain CTA chest - r/o PE, r/o other pathology. Check echo. If CTA Chest and echo are unrevealing consider stress test as outpatient given EKG changes seen today. Might need 2-day stress test. (2) Fatigue: Possibilities include sleep disordered breathing/NENA, medication side effect, metabolic disturbance, ongoing depression, etc. Check overnight oximetry study tonight. If positive (which I suspect) will d/c home on nocturnal oxygen. Then will need formal sleep study as outpatient. TSH wnl. Recent ammonia level wnl. Check B12 level am. On numerous psychotropic meds which can cause sedation. Recently spent time at some form of mental health facility for med adjustment. Will not change her meds at this time. Check depakote level to r/o toxicity. (3) Edema, peripheral: Edema is most c/w lymphedema. Clinical picture is not c/w CHF. Renal function is normal. TSH is normal. LFTs are normal. Depakote can cause edema. I cannot rule out right heart disease thus check echo today. Lasix has not helped her even at escalating doses. Consider referral to lymphedema specialist for lymphedema treatment. Dimer is normal, but will obtain dopplers of legs just to be complete. (4) Daytime somnolence: Suspect sleep disordered breathing/NENA as cause. Cannot rule out med side effects. Overnight oximetry study tonight. Needs formal sleep study as outpatient. (5) Hypoxia: If work-up is negative she may have obesity-hypoventilation syndrome. Check nocturnal oximetry study tonight. Would obtain 2-step oxygen test on day of discharge as well. (6) Morbid obesity: BMI 54.6 (7) Seizure disorder: by history. continue current meds. check depakote level to r/o toxicity. (8) Hypothyroid: TSH 2.3. Cont synthroid. (9) Hyperlipidemia: LDL 55 earlier this summer. Cont statin. (10) Intermittent explosive disorder: Cont psychotropic meds from detention as previous. (11) Depression: defer management to outpatient physicians. (12) Intellectual disability: moderate-severe. (13) Leukopenia: appears chronic. also with associated mild thrombocytopenia. check B12 level in am. takes daily folate supplement - defer on folic acid level. this may be her baseline for her given the chronicity. (14) Thrombocytopenia: mild. see above in "leukopenia." (15) DVT prophylaxis: due to BMI of nearly 55 -- heparin 7500 units TID PT eval to ensure safe for return to [facility] healthcare power of criminal defense attorney -- group practice pediatrician who was present today during the admission was uncertain if it was her mother or another detention employee Discharge Plan Discharge Items Reason For Visit: HYPOXIA,DYSPNEA Medications and DC Order Prescriptions: No Action atorvastatin 20 mg tablet 20 mg PO HS Qty: 90 RF: 0 cholecalciferol (vitamin D3) 5,000 unit tablet 5,000 units PO QAM Qty: 30 RF: 0 estradiol 1 mg tablet 1 mg PO QAM Qty: 30 RF: 0 lorazepam 1 mg tablet 0.5 mg PO TID RF: 0 perphenazine 8 mg tablet 8 mg PO TID RF: 0 magnesium hydroxide [Milk of Magnesia] 400 mg/5 mL suspension See Rx Instructions PO DAILY PRN (Reason: Constipation) RF: 0 mupirocin 2 % ointment 1 appln TOP TID Qty: 30 RF: 1 ziprasidone HCl 20 mg capsule 20 mg PO BID RF: 0 desmopressin 0.2 mg tablet 0.2 mg PO HS RF: 0 diphenhydramine HCl [Benadryl Allergy] 25 mg Tablet 50 mg PO HS RF: 0 benztropine 1 mg Tablet 1 mg PO QAM RF: 0 melatonin 5 mg Tablet 5 mg PO HS RF: 0 folic acid 1 mg tablet 1 mg PO QAM RF: 0 divalproex 500 mg tablet extended release 24 hr 500 mg PO QAM RF: 0 topiramate 200 mg tablet 200 mg PO QAM RF: 0 levothyroxine 125 mcg tablet 125 mcg PO QAM RF: 0 citalopram 20 mg tablet 20 mg PO QAM RF: 0 divalproex 500 mg tablet extended release 24 hr 1,000 mg PO HS RF: 0 furosemide [Lasix] 40 mg tablet 60 mg PO QAM RF: 0 Admission Data Admit Date/Time: 07/15/20 13:31 Attending Provider: Carolin John Admit Provider: Levy Camacho Primary Care Provider: Thu Grady Other Providers: Levy Camacho Coding Diagnoses Dyspnea R06.00 Dyspnea type: dyspnea on exertion Fatigue R53.83 Fatigue type: unspecified Edema, peripheral R60.9 Daytime somnolence R40.0 Hypoxia R09.02 Morbid obesity E66.01 Seizure disorder G40.909 Hypothyroid E03.9 Hypothyroidism type: unspecified Hyperlipidemia E78.5 Hyperlipidemia type: unspecified Intermittent explosive disorder F63.81 Depression F32.9 Depression Type: unspecified Intellectual disability F79 Leukopenia D72.818 Leukopenia type: other Thrombocytopenia D69.6 DVT prophylaxis Z29.9
--- NOTE | 2020-07-16 15:36 | Hospitalist Progress Note ---
Date of Service July 16, 2020 Assessment & Plan (1) Dyspnea: * Reported on admission. CXR negative for acute process. 97% on RA this AM, currently 92% on RA * CTA chest without evidence of PE * ECHO with normal LV size and systolic function. EF 55-60%. No regional wma. Moderate concentric LVH. No significant valvular abnormalities visualized. * Rec outpatient stress testing given EKG with nonspecific T wave abnormality on EKG in anterior leads vs inpatient if she will be staying (2) Fatigue: * Possibilities include sleep disordered breathing/NENA, medication side effect, metabolic disturbance, ongoing depression, etc. * Overnight pulse ox with sat dropped to 77% -- set up overnight oxygen and provided rx to CM. Per Skills, staff will need 24 hours to train prior to discharge --> to be arranged by tomorrow * 2 step without desaturation * Will need set up for outpatient sleep study * TSH wnl. Recent ammonia level wnl. B12 elevated * On numerous psychotropic meds which can cause sedation. Recently spent time at some form of mental health facility for med adjustment. Will not change her meds at this time. * Depakote level slightly above upper limit, 101 -- rec recheck as outpatient (3) Edema, peripheral: * Edema is most c/w lymphedema. Stable lymphedema on exam today, likely related to psych medications * Lasix without help in the past --> may benefit from f/u lymphedema clinic. [facility] kal consulted to arrange * Ddimer normal, but US dopplers pending for completeness (4) Daytime somnolence: * Suspect sleep disordered breathing/NENA as cause. Cannot rule out med side effects. * Overnight oximetry as above -- will need outpatient sleep study (5) Hypoxia: * Not requiring oxygen at this time --> likely element of NENA but will need formal dx on outpatient sleep study. (6) Morbid obesity: * BMI 54.6 (7) Seizure disorder: * by history. With anxiety and depression as well * Continue cogentin, celeca, depakote, lorazepam, topamax, geodon * Depakote level as above (8) Hypothyroid: * TSH 2.3. Continue levothyrxine 125mcg daily (9) Hyperlipidemia: * Likely related to antipsychotic medications * LDL 55 earlier this summer. * Cont statin. (10) Intermittent explosive disorder: * Cont psychotropic meds from [facility] as previous. (11) Depression: * defer management to outpatient physicians. (12) Intellectual disability: * moderate-severe. (13) Leukopenia: * appears chronic. WBC 3.97k. B12 wnl. ALready on folate supplementation * may be her baseline? (14) Thrombocytopenia: * mild. * see above in "leukopenia." (15) DVT prophylaxis: * due to BMI of nearly 55 -- heparin 7500 units TID * PT eval to ensure [facility] --> she refused to participate with PT but OT with rec to return with 24/06 supervision Dispo: d/c saturday Admission and Anticipated Discharge Date Admission Date: July 15, 2020 Supervising Physician Co-Signing Physician Notes PA Supervision Note: I did not personally see or examine the patient today, but I verified all giordano points of SILVANA Paulino's assessment and plan with the following exceptions/additions: None Subjective Patient evaluated this morning. She denies shortness of breath, chest pain, abdominal pain at this time. Took pills with pudding today for nursing. Patient very adamant about going home. Almost all questions and denials of ROS followed by "go home?" by the patient. Discussed with patient this afternoon that oxygen needs to be set up and staff trained prior to discharge safely and that she will need a sleep study o utpatient. She does admit to daytime solmnelence. Review of Systems Review of Systems: Unobtainable due to cognitive status Constitutional: + fatigue and + weight gain; no fever and no anorexia Respiratory: + dyspnea on exertion; no cough Cardiovascular: + edema; no chest pain Genitourinary: recently on course of levaquin for possible UTI Integumentary: ?recent cellulitis of legs? Psychiatric: + behavioral changes and + depression Endocrine: no diabetes Physical Exam Constitutional: + morbidly obese; no acute distress and no altered mental status became tearful when told we would not be able to arrange discharge today due to teaching staff regarding nocturnal oxygen Eyes: + anicteric sclerae and PERRL ENMT: Ears: no hearing impairment and no TM abnormality Mouth: + macroglossia Mallampati Class: III Neck: trachea midline, no thyromegaly Respiratory: normal respiratory effort, lungs clear to auscultation Cardiovascular: Rate/Rhythm: regular rate and regular rhythm Heart Sounds: normal S1 and normal S2; no murmur Vessels: posterior tibial pulses present and dorsalis pedis pulses present; no JVD Extremities: + edema (lymphedema both legs - severe; nonpitting ) Gastrointestinal (Abdomen): normal bowel sounds, soft, nontender, no hepatosplenomegaly Musculoskeletal: Extremities: no clubbing Skin: no rashes, warm and dry Neurologic: deep tendon reflexes 2+ bilaterally and moves all extremities Psychiatric: Orientation: alert and oriented to person Lymphatic: no cervical lymphadenopathy Results & Data Results & Data ([facility]) Vital Signs (Past 12 Hours) Vital Signs Temp Pulse Pulse Pulse Pulse Pulse Pulse 07/16/20 15:00 36.6 C 56 L 07/16/20 11:40 36.5 C 64 07/16/20 11:38 89 101 H 68 07/16/20 08:00 62 07/16/20 07:37 36.8 C 62 07/16/20 03:48 36.9 C 66 Resp Resp Resp Resp BP BP Pulse Ox 07/16/20 15:00 20 112/68 92 07/16/20 11:40 18 138/70 97 07/16/20 11:38 20 20 16 07/16/20 08:00 07/16/20 07:37 20 102/71 95 07/16/20 03:48 18 108/69 96 Pulse Ox Pulse Ox Pulse Ox 07/16/20 15:00 07/16/20 11:40 07/16/20 11:38 92 94 95 07/16/20 08:00 07/16/20 07:37 07/16/20 03:48 PG Care Time/CCT Total # of Minutes Spent Total Time Spent with Patient: Total time spent is greater than 50% in coordination of care (as documented) at patient's floor/unit and/or counseling patient: Coding Level of Care Code 24490 Subseq Obs Care Lvl 2 Diagnoses Dyspnea R06.00 Dyspnea type: dyspnea on exertion Fatigue R53.83 Fatigue type: unspecified Edema, peripheral R60.9 Daytime somnolence R40.0 Hypoxia R09.02 Morbid obesity E66.01 Seizure disorder G40.909 Hypothyroid E03.9 Hypothyroidism type: unspecified Hyperlipidemia E78.5 Hyperlipidemia type: unspecified Intermittent explosive disorder F63.81 Depression F32.9 Depression Type: unspecified Intellectual disability F79 Leukopenia D72.818 Leukopenia type: other Thrombocytopenia D69.6 DVT prophylaxis Z29.9 (1) Fatigue Fatigue type: unspecified Qualified Code(s): R53.83 - Other fatigue (2) Depression Depression Type: unspecified Qualified Code(s): F32.9 - Major depressive disorder, single episode, unspecified (3) Dyspnea Dyspnea type: dyspnea on exertion Qualified Code(s): R06.00 - Dyspnea, unspecified (4) Hyperlipidemia Hyperlipidemia type: unspecified Qualified Code(s): E78.5 - Hyperlipidemia, unspecified (5) Hypothyroid Hypothyroidism type: unspecified Qualified Code(s): E03.9 - Hypothyroidism, unspecified (6) Leukopenia Leukopenia type: other Qualified Code(s): D72.818 - Other decreased white blood cell count
--- NOTE | 2020-07-16 18:15 | Ultrasound Report ---
US venous doppler LE RT CLINICAL HISTORY: Leg swelling COMPARISON STUDY: March 2020 FINDINGS: Grayscale color flow and spectral Doppler waveform analysis was performed. The patient was uncooperative and refused to have the right calf imaged. In addition the left lower extremity which w as originally ordered was not imaged as the patient became aggressive and refused additional imaging. On the right, no thrombus is visualized in the common femoral to the popliteal vein. IMPRESSION: 1. Technically limited study secondary to a lack of patient cooperation 2. No evidence of right lower extremity DVT as imaged from the common femoral vein to the popliteal v ein. ACT 112: Negative or not required by law. Electronically signed by: Jasper Lamb M.D. 07/16/2020 6:14 PM
[2020-07-16] MEDS: DESMOPRESSIN ACETATE 0.1 MG TAB PO SCH (20:13)
[2020-07-16] MEDS: ATORVASTATIN 20 MG TAB PO SCH (20:14)
[2020-07-17 05:26] VITALS: O2SAT 96
[2020-07-17] MEDS: LEVOTHYROXINE SODIUM 125 MCG TABLET PO SCH (05:58)
[2020-07-17] MEDS: HEPARIN SOD 5,000 UNIT/0.5 ML VIAL SQ SCH (06:01)
[2020-07-17 07:22] VITALS: TEMP 97.5
[2020-07-17] MEDS: LORazepam 0.5 MG TAB PO SCH (07:35)
[2020-07-17] MEDS: PERPHENAZINE 2 MG TABLET PO SCH (07:36)
[2020-07-17] MEDS: DIVALPROEX EXTENDED RELEASE 500 MG TAB PO SCH (07:36)
[2020-07-17] MEDS: CITALOPRAM 20 MG TAB PO SCH (07:36)
[2020-07-17] MEDS: estradioL 1 MG TAB PO SCH (07:36)
[2020-07-17] MEDS: TOPIRAMATE 100 MG TAB PO SCH (07:36)
[2020-07-17] MEDS: FOLIC ACID 1 MG TAB PO SCH (07:37)
[2020-07-17] MEDS: CHOLECALCIFEROL 1,000 UNITS 25 MCG TAB PO SCH (07:37)
[2020-07-17] MEDS: BENZTROPINE MESYLATE 1 MG TAB PO SCH (07:37)
[2020-07-17] MEDS ORDERED: FUROSEMIDE 20 MG TAB PO SCH (09:00)
--- NOTE | 2020-07-17 10:08 | Discharge Summary ---
Date of Service July 17, 2020 Admission HPI Per Admitting Provider Chief Complaint: edema, shortness of breath Primary Care Provider: Thu Grady MD 50yo female with history of severe intellectual disability, morbid obesity, hypothyroidism, and seizure disorder presents with persistent LE edema, dyspnea on exertion, fatigue/sleepiness, and lack of response to lasix over the last 2-3 weeks. She may have had 3-4 pounds of weight loss with the lasix. Her PCP, Dr Grady, has been adjusting the lasix. The [facility] has been noting tremors/shakes and dizziness recently as well. Skylar Sauceda was accompanied by a staff member from the [facility] who provided all of the history. The [employer] stated that Skylar Sauceda spent several months in a behavioral health unit and upon return to her Detention in [place] she was noted to have the above symptoms. She returned to the Detention about 1 month ago. Admission Exam Per Admitting Provider Constitutional: + morbidly obese; no acute distress and no altered mental status tearful, stating she wants her mother and wants to go home Eyes: + anicteric sclerae and PERRL ENMT: external ear and nose normal, oropharynx normal Ears: no TM abnormality Mouth: + macroglossia Neck: trachea midline, no thyromegaly Respiratory: normal respiratory effort, lungs clear to auscultation Cardiovascular: Rate/Rhythm: regular rate and regular rhythm Heart Sounds: normal S1 and normal S2; no murmur Vessels: posterior tibial pulses present and dorsalis pedis pulses present; no JVD Extremities: + edema (lymphedema both legs - severe; nonpitting ) Gastrointestinal (Abdomen): normal bowel sounds, soft, nontender, no hepatosplenomegaly Musculoskeletal: Extremities: no clubbing Skin: no rashes, warm and dry Neurologic: deep tendon reflexes 2+ bilaterally and moves all extremities Psychiatric: Orientation: alert and oriented to person Lymphatic: no cervical lymphadenopathy Principal Diagnosis Nocturnal Hypoxia, Probable Obstructive Sleep Apnea Discharge Exam Constitutional + morbidly obese; no acute distress and no altered mental status Eyes + anicteric sclerae and PERRL ENMT Ears: no hearing impairment and no TM abnormality Mouth: + macroglossia Neck trachea midline, no thyromegaly Respiratory normal respiratory effort, lungs clear to auscultation Cardiovascular Rate/Rhythm: regular rate and regular rhythm Heart Sounds: normal S1 and normal S2; no murmur Vessels: posterior tibial pulses present and dorsalis pedis pulses present; no JVD Extremities: + edema (lymphedema both legs - severe; nonpitting ) Gastrointestinal (Abdomen) normal bowel sounds, soft, nontender, no hepatosplenomegaly Musculoskeletal Extremities: no clubbing Skin no rashes, warm and dry Neurologic deep tendon reflexes 2+ bilaterally and moves all extremities Psychiatric Orientation: alert and oriented to person Lymphatic no cervical lymphadenopathy Discharge Data Allergies Allergy/AdvReac Type Severity Reaction Status Date / Time No Known Allergies Allergy Verified 07/15/20 09:28 Consultations 07/15/20 12:40 ED Decision to Admit Stat 07/16/20 13:18 Consult [facility] metal flow coordinator Routine 07/16/20 14:05 Consult [facility] metal flow coordinator Routine Ordered Studies 07/15/20 13:31 CT angio chest PE protocol Stat 07/16/20 16:09 US venous doppler LE RT Routine Hospital Course (1) Dyspnea: * Reported on admission. CXR negative for acute process. 97% on RA this AM, currently 92% on RA * CTA chest without evidence of PE * ECHO with normal LV size and systolic function. EF 55-60%. No regional wma. Moderate concentric LVH. No significant valvular abnormalities visualized. * Rec outpatient stress testing given EKG with nonspecific T wave abnormality on EKG in anterior leads vs inpatient if she will be staying (2) Fatigue: * Possibilities include sleep disordered breathing/NENA, medication side effect, metabolic disturbance, ongoing depression, etc. * Overnight pulse ox with sat dropped to 77% -- set up overnight oxygen and provided rx to CM * 2 step without desaturation with ambulation * TSH wnl. Recent ammonia level wnl. B12 elevated * On numerous psychotropic meds which can cause sedation. Recently spent time at some form of mental health facility for med adjustment. Will not change her meds at this time. * Depakote level slightly above upper limit, 101 -- rec'd recheck as outpatient * Will need set up for outpatient sleep study -- nurse navigator to set up next week (3) Edema, peripheral: * Edema is most c/w lymphedema. Stable lymphedema on exam today, likely related to psych medications * Lasix without help in the past --> may benefit from f/u [facility]ymphedema clinic. [facility] * D-dimer normal, Doppler incomplete due to patient cooperation although what was imaged was negative. Unlikely with normal d-dimer. (4) Daytime somnolence: * Suspect sleep disordered breathing/NENA as cause. Cannot rule out med side effects. * Overnight oximetry as above -- will need outpatient sleep study (5) Hypoxia: * 96% on RA at rest * --> likely element of NENA but will need formal dx on outpatient sleep study as above (6) Morbid obesity: * BMI 54.6 (7) Seizure disorder: * by history. With anxiety and depression as well * Continued cogentin, celeca, depakote, lorazepam, topamax, geodon * Depakote level as above -- rec repeat level outpatient with PCP (8) Hypothyroid: * TSH 2.3. Continued levothyrxine 125mcg daily (9) Hyperlipidemia: * Likely related to antipsychotic medications * LDL 55 earlier this summer. * Cont statin. (10) Intermittent explosive disorder: * Cont psych[facility] med[facility] as previous. (11) Depression: * defer management to outpatient physicians. (12) Intellectual disability: * moderate-severe. (13) Leukopenia: * appears chronic. WBC 3.97k. B12 wnl. ALready on folate supplementation. Possibly her baseline (14) Thrombocytopenia: * mild (15) DVT prophylaxis: * due to BMI of nearly 55 -- heparin 7500 units TID * PT eval to ensure safe for return to [facility] --> she refused to participate with PT but OT with rec to return with 24/ supervision Discharged with Griselda (her caregiver) Total Time Total Time Spent Total Time Spent (In Minutes): 60 Discharge Plan Discharge Items Patient Disposition: Personal Correction Reason For Visit: HYPOXIA,DYSPNEA Discharge Diagnosis: Likely Obstructive Sleep Apnea with daytime hypersomnolence, Nocturnal Hypoxia Condition on Discharge: Good Goals: You have been hospitalized for an acute medical problem. During your stay at [facility], we have made an effort to correct the problem that brought you to the hospital while keeping you as comfortable as possible. Medications were used to bring your condition under control and your discharge instructions will include directions for any medications you should take after leaving the hospital. Please make sure you see your Primary Care Provider as part of your follow up plan. Activity: Resume your previous activity Non-emergency contact: Primary Care Provider Call non-emergency contact if: you have any medication questions Follow-up/Referrals: Thu Grady MD [Primary Care Provider] - Diet: Heart Healthy [facility] Attending Provider Instructions: You have been hospitalized for shortness of breath and lower extremity edema. Imaging has been completed and your chest xray was clear. Imaging of your heart (an ultrasound called an echocardiogram) was done and does not show any issues that would contribute to this. If you still have shortness of breath with ambulation you may want to consider a stress test as an outpatient and should be discussed with your primary care provider. You have been set up with oxygen to wear at night and will likely need a CPAP to wear at night, however sleep studies are not done in the hospital and will need to be arranged as an outpatient. You will be contacted about an appointment next week. A 2step was also performed to see if these needs exist during the daytime or with ambulation and you DO NOT need any oxygen during the day, unless you are sleeping. You should continue with a rate of 2 liters per minute while sleeping until set up with CPAP. Untreated sleep apnea can lead to high blood pressure as well as other complications and it is VERY IMPORTANT that you follow up on this to prevent these complications. Your urine was checked and it appears to contain normal bacteria without signs of infection. No further antibiotics at this time. Your blood counts and electrolytes have remained within normal limits. A Depakote level was drawn and is on the upper limit of normal. It is recommended that you have a repeat level drawn as an outpatient with your primary care provider in the next month. Your legs appear to have chronic lymphedema and you may benefit from follow up with a lymphedema clinic and/or compression stocking to keep the swelling under control. You should continue with only the 40mg of lasix you had previously been taking as this is not likely swelling from a cardiac origin. Your urine was checked and culture does not show infection requiring antibiotics. Please return to the emergency room for any worsening shortness of breath or for any symptoms that are concerning for you. It has been a pleasure being a part of the medical team providing for you while you have been in the hospital. Take care! Pending Studies at Discharge: Yes Stand-Alone Forms: My [facility] Skilled Items Patient informed of condition?: Yes DNR: No Discharge Level of Care: Other Communicable Disease: No Discharge Prognosis: Stable Lines: None Urinary Catheter: No Medications and DC Order Prescriptions: Continued atorvastatin 20 mg tablet 20 mg PO HS Qty: 90 RF: 0 cholecalciferol (vitamin D3) 5,000 unit tablet 5,000 units PO QAM Qty: 30 RF: 0 estradiol 1 mg tablet 1 mg PO QAM Qty: 30 RF: 0 lorazepam 1 mg tablet 0.5 mg PO TID RF: 0 perphenazine 8 mg tablet 8 mg PO TID RF: 0 magnesium hydroxide [Milk of Magnesia] 400 mg/5 mL suspension See Rx Instructions PO DAILY PRN (Reason: Constipation) RF: 0 mupirocin 2 % ointment 1 appln TOP TID Qty: 30 RF: 1 ziprasidone HCl 20 mg capsule 20 mg PO BID RF: 0 desmopressin 0.2 mg tablet 0.2 mg PO HS RF: 0 diphenhydramine HCl [Benadryl Allergy] 25 mg Tablet 50 mg PO HS RF: 0 benztropine 1 mg Tablet 1 mg PO QAM RF: 0 melatonin 5 mg Tablet 5 mg PO HS RF: 0 folic acid 1 mg tablet 1 mg PO QAM RF: 0 divalproex 500 mg tablet extended release 24 hr 500 mg PO QAM RF: 0 topiramate 200 mg tablet 200 mg PO QAM RF: 0 levothyroxine 125 mcg tablet 125 mcg PO QAM RF: 0 citalopram 20 mg tablet 20 mg PO QAM RF: 0 divalproex 500 mg tablet extended release 24 hr 1,000 mg PO HS RF: 0 Changed furosemide [Lasix] 40 mg tablet 40 mg PO QAM Qty: 0 RF: 0 Discharge Orders: Discharge Order (Routine); Ordered 07/17/20 Ordered By: Bhavna Paulino Admission Data Admit Date/Time: 07/15/20 13:31 Attending Provider: Carolin John Admit Provider: Levy Camacho Primary Care Provider: Thu Grady Other Providers: Levy Camacho Other Interventions: Discharge Summary Assessment (RN) Last Done: 07/17/20 10:08 Supervising Physician Co-Signing Physician Notes PA Supervision Note: I did not personally see or examine the patient today, but I verified all giordano points of SILVANA Paulino's assessment and plan with the following exceptions/additions: None Patient left the hospital before I could see her this morning. Agree with plan as outlined above Coding Level of Care Code 52231 OBS Care - Discharge Diagnoses Dyspnea R06.00 Dyspnea type: dyspnea on exertion Fatigue R53.83 Fatigue type: unspecified Edema, peripheral R60.9 Daytime somnolence R40.0 Hypoxia R09.02 Morbid obesity E66.01 Seizure disorder G40.909 Hypothyroid E03.9 Hypothyroidism type: unspecified Hyperlipidemia E78.5 Hyperlipidemia type: unspecified Intermittent explosive disorder F63.81 Depression F32.9 Depression Type: unspecified Intellectual disability F79 Leukopenia D72.818 Leukopenia type: other Thrombocytopenia D69.6 DVT prophylaxis Z29.9
[2020-07-17 10:09] VITALS: BP 112/68; PULSE 66
== END 2020-07-17 10:23 | disposition home or self-care (01) ==
LOC: ED 08:23 → 2W 08:23 → SUATTDRO 13:31 → 2W 14:03